=== PATIENT | male | born 2005 | race Hispanic/Latino ===

== ENCOUNTER → 2025-08-13 | Emergency (ER) | payer SELFPAY ==
[~2025-08-13] VITALS: Ht 180.3 cm; Wt 74.4 kg
[2025-08-13 18:50] VITALS: BP 145/75; PULSE 80; RESP 18; TEMP 97.8
--- NOTE | 2025-08-13 18:55 | ERN ---
ED Note History of Present Illness Stated Complaint: RT HAND PAIN Chief Complaint: Hand Problem/Injury Time Seen by MD: 18:50 Dictation: PATIENT IS A 20-YEAR-OLD MALE HERE WITH COMPLAINTS OF RIGHT HAND PAIN ONSET WAS MONDAY. HE STATES HE HAS GONE TO THE EMERGENCY ROOM IN [facility] AND HAD A DISLOCATION FRACTURE OF THE LEFT ELBOW. HE SAID WHILE HE WAS IN THE EMERGENCY ROOM HE WAS PUNCHING A WALL AND HE THINKS HE MAY HAVE HURT HIS HAND. HE DID NOT TELL THE DOCTORS AT THAT TIME ABOUT HIS INJURY TO HIS HAND. NOTICED THE HAND NEXT DAY WAS SWOLLEN TENDER. DECREASED RANGE OF MOTION SECONDARY TO PAIN HAS A AN APPOINTMENT WITH HIS ORTHOPEDIC SURGEON IN [facility] IN THE LAST SEVERAL DAYS. Allergies: Coded Allergies: No Known Drug Allergies (Unverified Allergy, Unknown, 08/13/25) Past Medical History RN Note Reviewed/Agreed w/PF[facility]: Yes Review of System Dictation CONSTITUTIONAL: NEGATIVE EXCEPT FOR HPI HEAD/FACE: NEGATIVE EXCEPT FOR HPI EENT: NEGATIVE EXCEPT FOR HPI RESPIRATORY: NEGATIVE EXCEPT FOR HPI GASTROINTESTINAL/ABDOMINAL: NEGATIVE EXCEPT FOR HPI GENITOURINARY: NEGATIVE EXCEPT FOR HPI MUSCULOSKELETAL: NEGATIVE EXCEPT FOR HPI RIGHT HAND PAIN INTEGUMENTARY: NEGATIVE EXCEPT FOR HPI NEUROLOGICAL/PSYCH: NEGATIVE EXCEPT FOR HPI HEMATOLOGIC/LYMPHATIC: NEGATIVE EXCEPT FOR HPI ALL SYSTEMS NEGATIVE, EXCEPT NOTED ABOVE. 13 POINT REVIEW OF SYSTEMS ASSESSED AND ALL NEGATIVE EXCEPT FOR ABOVE. Initial Vital Sign VS Vital Signs Date Time Temp Pulse Resp B/P (MAP) Pulse Ox O2 Delivery O2 Flow Rate FiO2 08/13/25 18:50 97.9 80 18 145/75 98 Room Air Physical Exam Dictation VITAL SIGNS REVIEWED GENERAL APPEARANCE: ALERT, ORIENTED X 3, N MODERATE ACUTE DISTRESS, WELL DEVELOPED, NOURISHED. HEAD AND FACE: NON-TRAUMATIC. EYES: PERRL, PINK CONJUNCTIVAS, EYELID NO TRAUMA, ANTERIOR CHAMBER WITH ARCUS SENILIS. EARS: PINNAS INTACT AND NO SIGNS OF TRAUMA OR ERYTHEMA EAR CANALS CLEAR AND NO DISCHARGE TM NO ERYTHEMA NOSE: NO DISCHARGE, NO BLEEDING. OROPHARYNX: MOUTH NORMAL, TONGUE PINK, PHARYNX CLEAR,NO ERYTHEMA, TONSILS NO EXUDATES, NO ABSCESSES NOTED, MUCOUS MEMBRANE MOIST NECK: SUPPLE, NON-TENDER, NO THYROMEGALY, NO MASSES, NO JVD, NO BRUITS BREAST:DEFERRED CHEST:NO TENDERNESS, NO CREPITUS, NO PARADOXICAL MOVEMENT, NO RETRACTIONS LUNGS:CLEAR, WELL-VENTILATED, SYMMETRIC, NO RALES, NO WHEEZING, NO RHONCHI, NO STRIDOR, GOOD BREATH SOUNDS BILATERALLY HEART: REGULAR RATE, REGULAR RHYTHM, NO MURMUR, NO GALLOPS VASCULAR: NO PERIPHERAL EDEMA, ABDOMEN: SOFT, POSITIVE BOWEL SOUNDS, NONDISTENDED, NO GUARDING, NONTENDER, NO REBOUND, NO MASSES NO HEPATOMEGALY, NO SPLENOMEGALY, NO TAMAYO'S S IGN, NO HERNIAS. RECTAL: DEFERRED GENITAL: DEFERRED NEUROLOGICAL: NORMAL SPEECH, MOTOR FUNCTION INTACT, SENSORY FUNCTION INTACT MUSCULOSKELETAL: NECK NONTENDER, FULL RANGE OF MOTION, BACK NONTENDER, FULL RANGE OF MOTION, EXTREMITIES: SWELLING TENDERNESS TO THE DORSUM OF THE RIGHT HAND DIFFUSELY. WRIST RANGE OF MOTION SECONDARY TO PAIN. NEUROVASCULAR CMS INTACT. SKIN: COLOR PINK, DRY, NO TURGOR, NO RASH, NO LACERATIONS, NO ABRASIONS, NO CONTUSIONS. LYMPHATIC: DEFERRED Results (Laboratory/Radiology) Laboratory/Radiology Right hand x-ray negative Labs Reviewed?: Yes ED Course ED Course Orders Procedure Category Date Status Time Hand 3+Vws Rt RAD 08/13/25 Taken 18:52 Ibuprofen 800 Mg Tab PHA 08/13/25 Complete (Motrin) 19:00 Current Medications Medications (Trade) Dose Ordered Sig/Nelida Route PRN Reason Start Time Stop Time Status Last Admin Dose Admin Ibuprofen (moTRIN) 800 mg ONCE ONCE PO 08/13/25 19:00 08/13/25 19:01 DC Vital Signs Date Time Temp Pulse Resp B/P (MAP) Pulse Ox O2 Delivery O2 Flow Rate FiO2 08/13/25 18:50 97.9 80 18 145/75 98 Room Air 190/patient states the he had already had an x-ray of his hand two days ago in [place] and was told there was no fracture. Additionally he states he took Tylenol with codeine and ibuprofen prior to arrival and he would not need any medications for pain. Now he states he just wants a 2nd opinion on the hand. 1939/patient discharged home with right hand contusion. He was instructed to continue all instructions and medications from his visit to the emergency room in [facility]. Follow up with the orthopedic surgeon for his left arm Medical Decision Making MDM Medical discharge making based on x-ray of right hand to rule out fracture. No fracture noted Patient has Tylenol No. 3 and ibuprofen home from an ER visit in [facility] for his left arm fracture dislocation Splint to left arm with sling in place neurovascular CMS intact to left hand Patient told to continue his medications and follow up with the orthopedic surgeon from the emergency room visit in [place] DX & DISP Disposition: Discharge Departure Impression: Primary Impression: Contusion of right hand, initial encounter Condition: Stable Additional Instructions: Follow-up with primary care provider in 1 to 2 days. Take medications as directed here in the emergency room. Okay to continue home medications unless otherwise discussed during your visit in the emergency room today. Return to your nearest emergency room if symptoms worsen or if there is no improvement. Call 911 if you need immediate assistance. Take Tylenol or Motrin [id number] as needed and if no contraindications are present. Increase oral hydration. A wound culture or urine culture was ordered here in the emergency room department please follow-up with primary care provider and advise them to get repeat ports from our facility. If you had any Matt wrap/splints that were applied here, please do not remove them until you see your primary care or specialty. Continue al medications and treatments from your emergency room visit in [facility]. Continue with sling/splint/no weight-bearing left arm until cleared by your orthopedic surgeon. Cool compresses to right hand three to 4 times a day. Time of Disposition: 19:39 I have reviewed the case, and I agree with, Diagnosis and Plan GWEN AMARO NP Aug 13, 2025 18:55
--- NOTE | 2025-08-13 19:52 | HMCIMG ---
EXAM: CR right Hand, 3 View. CLINICAL HISTORY: DIFFUSE RIGHT HAND SWELLING TENDERNESS AFTER PUNCHING WALL MONDAY. COMPARISON: None provided. FINDINGS: BONES: No acute osseous pathology evident. JOINTS: No evidence of dislocation. The joint spaces are normal. SOFT TISSUES: The soft tissues appear within normal limits. No radiopaque foreign body is seen. IMPRESSION: No acute pathology evident. No acute fracture or dislocation. /[place]
== END ==
LOC: EDH 18:44
DX: S60.221A Contusion of right hand, initial encounter (principal); W22.01XA Walked into wall, initial encounter; Y93.89 Activity, other specified; Y92.89 Other specified places as the place of occurrence of the external cause; Y99.8 Other external cause status
CPT/HCPCS: 73130; 99283